=== PATIENT | female | born 1990 | race Caucasian/White ===

== ENCOUNTER 2022-01-18 22:14 | Emergency (ER) | payer SELFPAY ==
[~2022-01-18] VITALS: Ht 162.6 cm; Wt 59.0 kg
[2022-01-18] MEDS ORDERED: IBUPROFEN 600 MG TAB PO STA (22:20)
[2022-01-18] MEDS ORDERED: ONDANSETRON HCL 4 MG ORAL DISINTEGRATING TAB PO ONE (22:30)
== END 2022-01-18 23:28 | disposition home or self-care (01) ==
LOC: ER 22:17
DX: R50.9 Fever, unspecified (principal); J10.1 Influenza due to other identified influenza virus with other respiratory manifestations; Z20.822 Contact with and (suspected) exposure to COVID-19
CPT/HCPCS: 99283; Q0162; U0002